=== PATIENT | male | born 1985 | race Caucasian/White ===

== ENCOUNTER 2020-06-02 10:05 | Emergency (ER) | payer OTHER, SELFPAY ==
--- NOTE | 2020-06-02 10:11 | ED_ITS ---
HPI - Nausea/Vomiting/Diarrhea General Chief complaint: Nausea/Vomiting/Diarrhea Stated complaint: DEHYDRATION,VOMITING Time Seen by Provider: 06/02/20 10:11 Source: patient Mode of arrival: ambulatory Limitations: no limitations History of Present Illness MD elicited complaint: nausea, vomiting and diarrhea Onset (ago): day(s) (2) Description of vomiting: food contents and watery Associated nausea: Yes Associated abdominal pain: No Severity: moderate Exacerbating factors: none Relieving factors: none Context: possible food poisoning Associated symptoms: denies other symptoms Treatment prior to arrival: fluids Related Data Previous Rx's Medication Instructions Recorded ondansetron 4 mg PO Q8H PRN #20 tab 06/02/20 Allergies Allergy/AdvReac Type Severity Reaction Status Date / Time codeine [CODEINE] Allergy Unknown HIVES Unverified 03/11/20 15:33 Review of Systems Review of Systems: Constitutional : No Weight loss, No Fever, No Chills ENT/Mouth : No sore throat, No Rhinorrhea Eyes: No Swelling, No Redness Cardiovascular : No Chest Pain, No SOB, NoEdema Respiratory : No Cough, No Sputum, No Wheezing Gastrointestinal : Positive Nausea, Positive Vomiting, positive Diarrhea, no abdominal Pain, No Hematochezia, No Melena Genitourinary : No Dysuria, No Urinary Frequency, No Hematuria, No Urgency Musculoskeletal : No joint pain, No Myalgias, No Joint Swelling Skin : No Skin Lesions, No rash Neuro : No Weakness, No Numbness, No Dizziness, No Headache All other systems reviewed and are negative. Gastrointestinal: Gastrointestinal: Reports nausea PMFSH Past Medical History Source: unable to obtain Medical History (Updated 06/02/20 @ 11:52 by Jenny Mcwilliams DO) No active medical problems Social History Social History (Updated 06/02/20 @ 10:30 by Jenny Mcwilliams DO) Smoking Status: Never smoker Substance Use Type: Marijuana Advance Directives: No Advance Directives Information Provided: No Physical Exam Vital Signs: Vital Signs: Last Vital Signs Temp 98.4 F 06/02/20 10:31 Pulse 96 06/02/20 10:31 Resp 18 06/02/20 10:31 BP 144/97 H 06/02/20 10:31 Pulse Ox 98 06/02/20 10:31 Body Mass Index 36.6 Appearance: Alert. Oriented X3. No acute distress. Eyes: Pupils equal, round and reactive to light. ENT: Pharynx normal. Neck: Normal inspection. Neck supple. CVS: Normal heart rate and rhythm. Pulses normal. Respiratory: No respiratory distress. Breath sounds normal. Abdomen: Soft and nontender. Skin: Skin warm and dry. Normal skin color. Normal skin turgor. Extremities: No lower extremity edema. No calf ttp Neuro: Oriented X 3. No motor deficit. No sensory deficit. Course Course Course Narrative: not toxic, able to tolerate PO other than dehydration stable for DC MDM - Nausea/Vomiting/Diarrhea MDM Narrative Medical decision making narrative: 35 yo male with 2 days of vomiting and diarrhea - no abdominal pain not toxic but states he cannot keep anything down at this time will need labs, IVF, zofran - patient suspects possible food contamination, no other sick contacts, his partner has negative COVID tests weekly Lab Data Result diagrams: 06/02/20 10:56 06/02/20 10:56 Labs: Lab Results 06/02/20 06/02/20 06/02/20 Range/Units 10:42 10:56 10:56 WBC 12.7 H (4.8-10.8) X10*3/uL RBC 6.18 H (4.60-5.80) X10*6/uL Hgb 18.3 H (14.0-18.0) g/dl Hct 51.9 (42-52) % MCV 84.0 (80-98) fL MCH 29.6 (27.0-33.0) pg MCHC 35.3 (31.0-36.0) g/dl RDW 12.8 (11.0-16.0) % Plt Count 265 (160-400) X10*3/uL MPV 10.4 (9.4-12.4) fL Immature Gran % (Auto) 0.6 H (0.0-0.4) % Neut % (Auto) 77.2 H (45-73) % Lymph % (Auto) 12.3 L (20-40) % [place] % (Auto) 9.0 (2-11) % Eos % (Auto) 0.4 (0-4) % Baso % (Auto) 0.5 (0-2) % Lymph # (Auto) 1.6 (1.2-4.9) X10*3/uL [place] # (Auto) 1.1 (0.1-1.2) X10*3/uL Eos # (Auto) 0.1 (0.0-0.4) X10*3/uL Baso # (Auto) 0.1 (0.0-0.2) X10*3/uL Abs Immat Gran (auto) 0.08 H (0.00-0.03) X10*3/uL Absolute Neuts (auto) 9.8 H (2.0-8.3) X10*3/uL Absolute Nucleated RBC 0.000 (0.0-0.012) X10*3/uL Nucleated RBC % (auto) 0.0 (0.0-0.2) /100WBC Hold Blue Top Sodium 137 (135-145) mmol/L Potassium 4.0 (3.3-5.1) mmol/l Chloride 103 (96-108) mmol/L Carbon Dioxide 19 L (22-29) mmol/L Anion Gap 19 (12-20) BUN 21 H (9-16) mg/dL Creatinine 1.13 (0.5-1.4) mg/dL Estim Creat Clear Calc 106.9 Estimated GFR > 60 Random Glucose 131 H (60-115) mg/dL Calcium 9.9 (8.4-10.2) mg/dL Magnesium 2.2 (1.6-2.6) mg/dL Total Bilirubin 0.3 (0.0-1.0) mg/dL Direct Bilirubin 0.2 (0.0-0.5) mg/dL AST 24 (5-37) U/L ALT 40 (0-40) U/L Alkaline Phosphatase 61 (39-117) U/L Total Protein 9.7 H (6.5-8.0) g/dL Albumin 5.1 H (3.5-5.0) g/dL Lipase 15 (8-78) U/L Urine Color DARK YELLOW Urine Appearance HAZY Urine pH 6.0 (5.0-8.0) Ur Specific [place] >= 1.030 H (1.005-1.025) Urine Protein 3+ H (NEG-TRACE) MG/DL Urine Glucose (UA) NEG (NEG) MG/DL Urine Ketones NEG (NEG) MG/DL Urine Blood NEG (NEG) Urine Nitrite NEG (NEG) Ur Leukocyte Esterase NEG (NEG) Urine RBC 0 (0) /HPF Urine WBC 0-2 (0-4) /HPF Ur Squamous Epith Cells TRACE /LPF Urine Bacteria NONE /LPF Urine Mucus 1+ /LPF 06/02/20 Range/Units 10:57 WBC (4.8-10.8) X10*3/uL RBC (4.60-5.80) X10*6/uL Hgb (14.0-18.0) g/dl Hct (42-52) % MCV (80-98) fL MCH (27.0-33.0) pg MCHC (31.0-36.0) g/dl RDW (11.0-16.0) % Plt Count (160-400) X10*3/uL MPV (9.4-12.4) fL Immature Gran % (Auto) (0.0-0.4) % Neut % (Auto) (45-73) % Lymph % (Auto) (20-40) % [place] % (Auto) (2-11) % Eos % (Auto) (0-4) % Baso % (Auto) (0-2) % Lymph # (Auto) (1.2-4.9) X10*3/uL [place] # (Auto) (0.1-1.2) X10*3/uL Eos # (Auto) (0.0-0.4) X10*3/uL Baso # (Auto) (0.0-0.2) X10*3/uL Abs Immat Gran (auto) (0.00-0.03) X10*3/uL Absolute Neuts (auto) (2.0-8.3) X10*3/uL Absolute Nucleated RBC (0.0-0.012) X10*3/uL Nucleated RBC % (auto) (0.0-0.2) /100WBC Hold Blue Top SEE NOTE Sodium (135-145) mmol/L Potassium (3.3-5.1) mmol/l Chloride (96-108) mmol/L Carbon Dioxide (22-29) mmol/L Anion Gap (12-20) BUN (9-16) mg/dL Creatinine (0.5-1.4) mg/dL Estim Creat Clear Calc Estimated GFR Random Glucose (60-115) mg/dL Calcium (8.4-10.2) mg/dL Magnesium (1.6-2.6) mg/dL Total Bilirubin (0.0-1.0) mg/dL Direct Bilirubin (0.0-0.5) mg/dL AST (5-37) U/L ALT (0-40) U/L Alkaline Phosphatase (39-117) U/L Total Protein (6.5-8.0) g/dL Albumin (3.5-5.0) g/dL Lipase (8-78) U/L Urine Color Urine Appearance Urine pH (5.0-8.0) Ur Specific [place] (1.005-1.025) Urine Protein (NEG-TRACE) MG/DL Urine Glucose (UA) (NEG) MG/DL Urine Ketones (NEG) MG/DL Urine Blood (NEG) Urine Nitrite (NEG) Ur Leukocyte Esterase (NEG) Urine RBC (0) /HPF Urine WBC (0-4) /HPF Ur Squamous Epith Cells /LPF Urine Bacteria /LPF Urine Mucus /LPF Discharge Plan Discharge Clinical Impression: Acute dehydration Vomiting Qualifiers: Vomiting type: unspecified Vomiting Intractability: non-intractable Nausea presence: with nausea Qualified Code(s): R11.2 - Nausea with vomiting, unspecified Diarrhea Qualifiers: Diarrhea type: unspecified type Qualified Code(s): R19.7 - Diarrhea, unspecified Patient Disposition: Home, Self-Care Instructions: Acute Nausea and Vomiting in Children (ED), Dehydration (ED), Acute Diarrhea (ED) Additional Instructions: return to ED for any worsening symptoms or concerns Prescriptions: New ondansetron 4 mg tablet,disintegrating 4 mg PO Q8H PRN (Reason: nausea and vomiting) Qty: 20 RF: 0 Referrals: Physician,None [Primary Care Provider] - 2 days (PCP if not better) Stand Alone Forms: Work/School Release
[2020-06-02 10:31] VITALS: BP 144/97; PULSE 96; RESP 18; TEMP 36.9; O2SAT 98; BMI 36.6
[2020-06-02 11:08] LABS: MANUAL DIFF FLAG NO
[2020-06-02 11:11] LABS: Basophils Absolute Auto 0.1 X10*3/uL (0.0-0.2); Basophils Percent Auto 0.5 % (0-2); Eosinophils Absolute Auto 0.1 X10*3/uL (0.0-0.4); Eosinophils Percent Auto 0.4 % (0-4); Hematocrit 51.9 % (42-52); Hemoglobin 18.3 g/dl (14.0-18.0); Imm Gran Abs Auto 0.08 X10*3/uL (0.00-0.03); Imm Gran Pct Auto 0.6 % (0.0-0.4); Lymphocytes Absolute Auto 1.6 X10*3/uL (1.2-4.9); Lymphocytes Percent Auto 12.3 % (20-40); Mean Corpuscular HGB Conc 35.3 g/dl (31.0-36.0); Mean Corpuscular Hemoglobin 29.6 pg (27.0-33.0); Mean Platelet Volume 10.4 fL (9.4-12.4); Monocytes Absolute Auto 1.1 X10*3/uL (0.1-1.2); Neutrophils Absolute Auto 9.8 X10*3/uL (2.0-8.3); Neutrophils Percent Auto 77.2 % (45-73); Platelet Count 265 X10*3/uL (160-400); Red Blood Count 6.18 X10*6/uL (4.60-5.80); Red Cell Distribution Width 12.8 % (11.0-16.0); White Blood Count 12.7 X10*3/uL (4.8-10.8)
[2020-06-02 11:12] LABS: Glucose Urine UA NEG (NEG); Leukocyte Esterase Urine NEG (NEG); Nitrite Urine NEG (NEG); Specific Gravity - Urine >= 1.030 (1.005-1.025); Urine Blood NEG (NEG); Urine Ketones NEG (NEG); Urine Protein 3+ MG/DL (NEG-TRACE)
[2020-06-02 11:13] LABS: Appearance Urine HAZY; Color Urine DARK YELLOW
[2020-06-02 11:20] LABS: Mucus Urine 1+ /LPF; RBC Urine 0 /HPF (0); Squamous Epithelial Cell Urine TRACE /LPF; WBC Urine 0-2 /HPF (0-4)
[2020-06-02] MEDS: ondansetron HCL 4 MG/2 ML VIAL IVPUSH (11:21)
[2020-06-02] MEDS: 0.9 % Sodium Chloride 1,000 ML 999 ML IVCONT ×2 (11:21→11:54)
[2020-06-02 11:44] LABS: Alanine Aminotransferase 40 U/L (0-40); Albumin Level 5.1 g/dL (3.5-5.0); Alkaline Phosphatase 61 U/L (39-117); Anion Gap 19 (12-20); Aspartate Amino Transferase 24 U/L (5-37); Bilirubin Direct 0.2 mg/dL (0.0-0.5); Bilirubin Total 0.3 mg/dL (0.0-1.0); Blood Urea Nitrogen 21 mg/dL (9-16); Calcium 9.9 mg/dL (8.4-10.2); Carbon Dioxide 19 mmol/L (22-29); Chloride 103 mmol/L (96-108); Creatinine Clr Calc Pharmacy 106.9; Estimated Glomerular Filt Rate > 60; Glucose Random 131 mg/dL (60-115); Lipase 15 U/L (8-78); Magnesium 2.2 mg/dL (1.6-2.6); Sodium 137 mmol/L (135-145); Total Protein 9.7 g/dL (6.5-8.0)
== END 2020-06-02 12:29 | disposition home or self-care (01) ==
PROVIDERS: Emergency Provider Emergency Medicine
DX: E86.0 Dehydration (principal); R11.2 Nausea with vomiting, unspecified; R19.7 Diarrhea, unspecified
CPT/HCPCS: 36415; 80048; 80076; 81001; 83690; 83735; 85025; 96361; 96374; 99282; 99284; J2405

== ENCOUNTER 2020-09-01 21:11 | Emergency (ER) | payer OTHER, SELFPAY ==
[2020-09-01 22:28] VITALS: BP 142/80; PULSE 70; RESP 16; TEMP 36.5; O2SAT 93; BMI 36.8
--- NOTE | 2020-09-01 23:20 | ED_ITS ---
HPI - Abdominal Pain General Chief Complaint: Abdominal Pain Stated Complaint: Abdominal pain Time Seen by Provider: 09/01/20 23:19 Source: patient Mode of arrival: ambulatory History of Present Illness MD elicited complaint: abdominal pain Onset (ago): day(s) (today) Pain Consistency: now resolved Location: epigastric Severity: mild Pain scale (0-10): 0 Quality: sharp Radiation: none Exacerbating factors: vomiting Relieving factors: rest Context: possible food poisoning Associated symptoms: denies other symptoms Related Data Previous Rx's Medication Instructions Recorded ondansetron 4 mg PO Q8H PRN #20 tab 06/02/20 omeprazole 40 mg PO DAILY 30 Days #30 cap 09/02/20 Allergies Allergy/AdvReac Type Severity Reaction Status Date / Time codeine [CODEINE] Allergy Unknown HIVES Verified 09/01/20 22:28 Review of Systems Review of Systems Pertinent positives and negatives as stated in HPI 10 point review systems is otherwise negative. Physical Exam Vital Signs: Vital Signs: Last Vital Signs Temp 97.7 F 09/01/20 22:28 Pulse 70 09/01/20 22:28 Resp 16 09/01/20 22:28 BP 142/80 H 09/01/20 22:28 Pulse Ox 93 09/01/20 22:28 Body Mass Index 36.8 VITAL SIGNS: Reviewed. GENERAL: Well developed, well nourished, in no acute distress. HEAD: Normocephalic/atraumatic, EYES: PERRLA, EOMI EARS: Ext canals without abnormality NOSE: Nares patent bilateral OROPHARYNX: no oral lesions noted, posterior pharynx clear, moist mucosa NECK: Supple, no adenopathy LUNGS: Normal breath sounds. No adventitious sounds or accessory muscle use. SpO2<93> CARDIOVASCULAR: Regular rate and rhythm without noted murmurs ABDOMEN: Soft, non-tender, non-distended with bowel sounds. NEUROLOGIC: Alert and oriented x 4. Course Course Course Narrative: This is a 35-year-old male with history and clinical presentation consistent with mild dehydration after suspected gastritis which has since resolved as patient states he has been able to tolerate water as well as cassia alethea and crackers throughout the day without any further episodes. There is no evidence in the history of hematemesis, melena, or hematochezia. Patient states he is otherwise feeling well and his symptoms have otherwise resolved. He will be provided with a GI cocktail and p.o. challenge. On re-evaluation patient has tolerated p.o. and feels improvement in symptoms after the GI cocktail. He was encouraged to follow up with his primary care provider in the next 2-3 days. Discharge Plan Discharge Clinical Impression: Gastritis Qualifiers: Gastritis type: unspecified gastritis Chronicity: unspecified Gastritis bleeding: without bleeding Qualified Code(s): K29.70 - Gastritis, unspecified, without bleeding Patient Disposition: Home, Self-Care Instructions: Gastritis (ED), Diet for Stomach Ulcers and Gastritis (ED) Additional Instructions: Please follow-up with your primary care provider the next 2-3 days for re- evaluation. Do not hesitate to return to the emergency department should you develop any acute worsening of your symptoms. Prescriptions: New omeprazole 40 mg capsule,delayed release(DR/EC) 40 mg PO DAILY 30 Days Qty: 30 RF: 0 No Action ondansetron 4 mg tablet,disintegrating 4 mg PO Q8H PRN (Reason: nausea and vomiting) Qty: 20 RF: 0 Referrals: Physician,None [Primary Care Provider] - 2 days Stand Alone Forms: Work/School Release [facility] Past Medical History Source: nursing notes reviewed Medical History No active medical problems Social History Social History Alcohol intake: never Smoking Status: Never smoker Use of substances other than those prescribed or required for medical reasons: Yes Substance Use Type: Marijuana Substance Use Frequency: Daily Advance Directives: No Advance Directives Information Provided: No
[2020-09-01] MEDS: Magnesium Hydrox/Alum Hydrox 30 ML ORAL.SUSP PO (23:52)
[2020-09-01] MEDS: Lidocaine HCl Viscous 2 % 15 ML SOLUTION 10 ML MUCOUS MEM (23:52)
== END 2020-09-02 00:54 | disposition home or self-care (01) ==
PROVIDERS: Emergency Provider Student in an Organized Health Care Education/Training Program
DX: K29.70 Gastritis, unspecified, without bleeding (principal); F12.90 Cannabis use, unspecified, uncomplicated
CPT/HCPCS: 99283; 99284

== ENCOUNTER 2020-12-06 20:45 | Emergency (ER) | payer OTHER, SELFPAY ==
[2020-12-06 21:32] VITALS: BP 146/86; PULSE 97; RESP 12; TEMP 36.9; O2SAT 97; BMI 31.9
[2020-12-06 22:27] LABS: COVID-19 Test Negative (Negative); IDNOW Serial# 9DD0AD1C
--- NOTE | 2020-12-06 22:39 | ED.URI ---
HPI - URI/Sore Throat General Chief Complaint: Upper Respiratory Symptoms Stated Complaint: COUGH, CONGESTION Time Seen by Provider: 12/06/20 22:36 History of Present Illness HPI Narrative: 35 years old complaining of coughing upper respiratory symptoms. Patient did not receive his coronavirus vaccine. Positive generalized malaise. Positive congestion. Coughing productive of clear sputum. No sick contacts at home. Patient nonsmoker. Related Data Previous Rx's Medication Instructions Recorded ondansetron 4 mg PO Q8H PRN #20 tab 06/02/20 omeprazole 40 mg PO DAILY 30 Days #30 cap 09/02/20 azithromycin See Rx Instructions .ROUTE 12/06/20 .COMPLEX #6 tab ibuprofen 400 mg PO Q6H PRN #20 tab 12/06/20 Allergies Allergy/AdvReac Type Severity Reaction Status Date / Time codeine [CODEINE] Allergy Unknown HIVES Verified 09/01/20 22:28 Review of Systems Review of Systems: Constitutional: No Weight loss, No Fever, No Chills, No Night Sweats, No Fatigue, No Malaise ENT/Mouth: No Hearing loss, No Ear Pain, No Nasal Congestion, No Sinus Pain, No Hoarseness, No sore throat, No Rhinorrhea, No Swallowing Difficulty Eyes: No Eye Pain, No Swelling, No Redness, No Foreign Body, No Discharge, No Vision Changes Cardiovascular: No Chest Pain, No SOB, No Dyspnea on Exertion, No Orthopnea, No Edema, No Palpitations Respiratory: Positive Cough, No Sputum, No Wheezing, No Smoke Exposure, No Dyspnea Gastrointestinal: No Nausea, No Vomiting, No Diarrhea, No Constipation, No abdominal Pain, No Hematochezia, No Melena Genitourinary: no irregular bleeding, No Dysuria, No Urinary Frequency, No Hematuria, No Urinary Incontinence, No Urgency, No Flank Pain, No Urinary Flow Changes, No Hesitancy Musculoskeletal: No joint pain, No Myalgias, No Joint Swelling Skin: No Skin Lesions, No rash Neuro: No Weakness, No Numbness, No Paresthesias, No Loss of Consciousness, No Dizziness, No Headache Psych: No Anxiety/Panic, No Depression, No SI/HI/AH/VH, No Social Issues, Heme/Lymph: No Bruising, No Bleeding,No Lymphadenopathy Endocrine: No Polyuria, No Polydipsia, No Temperature Intolerance [facility] Past Medical History Attestation statement: The following information was validated with the patient. Medical History No active medical problems Social History Social History Alcohol intake: never Substance Use Type: Marijuana Advance Directives: No Advance Directives Information Provided: Yes Physical Exam Vital Signs: Vital Signs: Last Vital Signs Temp 98.4 F 12/06/20 21:32 Pulse 97 12/06/20 21:32 Resp 12 12/06/20 21:32 BP 146/86 H 12/06/20 21:32 Pulse Ox 97 12/06/20 21:32 Body Mass Index 31.9 Appearance: Alert. Oriented X3. No acute distress. Eyes: Pupils equal, round and reactive to light. ENT: Pharynx normal. Neck: Normal inspection. Neck supple. No lymph nodes noted. No crepitus CVS: Normal heart rate and rhythm. Pulses normal. Normal S1 and S2 Respiratory: No respiratory distress. Breath sounds normal. No Wheezing. No rales Abdomen: Soft and nontender. No rigidity. No distention. good BS x4 Skin: Skin warm and dry. Normal skin color. Normal skin turgor. Extremities: No lower extremity edema. Neurovascular intact to all extremities. No Lacerations. No Rash Neuro: Oriented X 3. No motor deficit. No sensory deficit. Moving all extermities. No slurred speech MDM - URI/Sore Throat MDM Narrative Medical decision making narrative: Well-appearing not acute distress. O2 sats normal. Patient coronavirus test was negative. Will start patient on a Z-Timothy. Home quarantine suggested. Close follow-up on an outpatient basis. In stable condition. Lab Data Labs: Lab Results 12/06/20 Range/Units 21:49 COVID-19 ([facility]) Negative (Negative) COVID-19 Clin Com See Note Discharge Plan Discharge Prescriptions: New ibuprofen 400 mg tablet 400 mg PO Q6H PRN (Reason: pain) Qty: 20 RF: 0 azithromycin 250 mg tablet See Rx Instructions .ROUTE .COMPLEX Qty: 6 RF: 0 No Action ondansetron 4 mg tablet,disintegrating 4 mg PO Q8H PRN (Reason: nausea and vomiting) Qty: 20 RF: 0 omeprazole 40 mg capsule,delayed release(DR/EC) 40 mg PO DAILY 30 Days Qty: 30 RF: 0
[2020-12-06] MEDS: Ibuprofen 400 MG TABLET PO (23:17)
== END 2020-12-06 23:29 | disposition home or self-care (01) ==
PROVIDERS: Emergency Provider Emergency Medicine Emergency Medical Services; PCP Internal Medicine
DX: J06.9 Acute upper respiratory infection, unspecified (principal); Z20.822 Contact with and (suspected) exposure to COVID-19; R05 Cough
CPT/HCPCS: 36415; 87635; 99283; 99284

== ENCOUNTER 2021-01-23 05:11 | Emergency (ER) | payer OTHER, SELFPAY ==
[2021-01-23 05:15] VITALS: BP 141/88; PULSE 64; RESP 16; TEMP 36.8; O2SAT 96; BMI 34.9
--- NOTE | 2021-01-23 05:26 | ED.DENTAL ---
HPI - Dental/Oral General Chief complaint: Dental/Oral Stated complaint: toothache Time Seen by Provider: 01/23/21 05:13 Source: patient Mode of arrival: ambulatory Limitations: no limitations History of Present Illness HPI Narrative: Patient comes emergency room complaining of a dental abscess in the right maxillary side. Patient states that he cracked a tooth several months ago. The pain has been gradually been getting worse, more noticeable over the last 2-3 days. Patient has an appointment with his dentist this coming week. Patient denies fever chills. Related Data Previous Rx's Medication Instructions Recorded ondansetron 4 mg disintegrating 4 mg PO Q8H PRN #20 tab 06/02/20 tablet omeprazole 40 mg capsule,delayed 40 mg PO DAILY 30 Days #30 cap 09/02/20 release azithromycin 250 mg tablet See Rx Instructions .ROUTE 12/06/20 .COMPLEX #6 tab ibuprofen 400 mg tablet 400 mg PO Q6H PRN #20 tab 12/06/20 ketorolac 10 mg tablet 10 mg PO TID PRN 5 Days #10 tab 01/23/21 penicillin V potassium 500 mg 500 mg PO TID 10 Days #30 tab 01/23/21 tablet Allergies Allergy/AdvReac Type Severity Reaction Status Date / Time codeine [CODEINE] Allergy Unknown HIVES Verified 01/23/21 05:14 Review of Systems Review of Systems: Constitutional : No Weight loss, No Fever, No Chills, No Night Sweats, No Fatigue, No Malaise ENT/Mouth : No Hearing loss, No Ear Pain, No Nasal Congestion, No Sinus Pain, No Hoarseness, No sore throat, No Rhinorrhea, No Swallowing Difficulty, complaining of dental pain in the right maxillary aspect Eyes: No Eye Pain, No Swelling, No Redness, No Foreign Body, No Discharge, No Vision Changes Cardiovascular : No Chest Pain, No SOB, No Dyspnea on Exertion, No Orthopnea, No Edema, No Palpitations Respiratory : No Cough, No Sputum, No Wheezing, No Smoke Exposure, No Dyspnea Gastrointestinal : No Nausea, No Vomiting, No Diarrhea, No Constipation, No abdominal Pain, No Hematochezia, No Melena Genitourinary : no irregular bleeding, No Dysuria, No Urinary Frequency, No Hematuria, No Urinary Incontinence, No Urgency, No Flank Pain, No Urinary Flow Changes, No Hesitancy Musculoskeletal : No joint pain, No Myalgias, No Joint Swelling Skin : No Skin Lesions, No rash Neuro : No Weakness, No Numbness, No Paresthesias, No Loss of Consciousness, No Dizziness, No Headache Psych : No Anxiety/Panic, No Depression, No SI/HI/AH/VH, No Social Issues, Heme/Lymph: No Bruising, No Bleeding,No Lymphadenopathy Endocrine : No Polyuria, No Polydipsia, No Temperature Intolerance [facility] Past Medical History Medical History No active medical problems Social History Social History Alcohol intake: never Substance Use Type: Marijuana Physical Exam Vital Signs: Vital Signs: Last Vital Signs Temp 98.3 F 01/23/21 05:15 Pulse 64 01/23/21 05:15 Resp 16 01/23/21 05:15 BP 141/88 H 01/23/21 05:15 Pulse Ox 96 01/23/21 05:15 Body Mass Index 34.9 Const: Other: Appearance: Alert. Oriented X3. No acute distress. Eyes: Pupils equal, round and reactive to light. ENT: Pharynx normal. Multiple chipped teeth in the right side maxillary aspect. No abscess visualized Neck: Normal inspection. Neck supple. No lymph nodes noted. No crepitus CVS: Normal heart rate and rhythm. Pulses normal. Normal S1 and S2 Respiratory: No respiratory distress. Breath sounds normal. No Wheezing. No rales Abdomen: Soft and nontender. No rigidity. No distention. good BS x4 Skin: Skin warm and dry. Normal skin color. Normal skin turgor. Extremities: No lower extremity edema. No lower extremity edema. No Lacerations. No Rash Neuro: Oriented X 3. No motor deficit. No sensory deficit. Moving all extermities. No slurred speech. Course Course Course Narrative: Patient has an appointment coming up with his dentist this week. Patient was given the 1st dose of penicillin and IM ketorolac in the emergency room Discharge Plan Discharge Clinical Impression: Toothache Patient Disposition: Home, Self-Care Instructions: Toothache (ED) Additional Instructions: Please follow-up with your primary care physician tomorrow. If you have any worsening or new symptoms, please return to the emergency room or call 911 Prescriptions: New penicillin V potassium 500 mg tablet 500 mg PO TID 10 Days Qty: 30 RF: 0 ketorolac 10 mg tablet 10 mg PO TID PRN (Reason: pain) 5 Days Qty: 10 RF: 0 No Action ibuprofen 400 mg tablet 400 mg PO Q6H PRN (Reason: pain) Qty: 20 RF: 0 azithromycin 250 mg tablet See Rx Instructions .ROUTE .COMPLEX Qty: 6 RF: 0 ondansetron 4 mg tablet,disintegrating 4 mg PO Q8H PRN (Reason: nausea and vomiting) Qty: 20 RF: 0 omeprazole 40 mg capsule,delayed release(DR/EC) 40 mg PO DAILY 30 Days Qty: 30 RF: 0
[2021-01-23] MEDS: Penicillin V Potassium 250 MG TABLET 500 MG PO (05:43)
[2021-01-23] MEDS: Ketorolac Tromethamine 60 MG/2 ML VIAL IM (05:44)
--- NOTE | 2021-01-23 05:48 | PC.NURSE ---
Medicated per MAR.
== END 2021-01-23 05:54 | disposition home or self-care (01) ==
LOC: HO.ED 05:54
PROVIDERS: Emergency Provider Emergency Medicine
DX: K08.89 Other specified disorders of teeth and supporting structures (principal); Z79.899 Other long term (current) drug therapy; F12.90 Cannabis use, unspecified, uncomplicated
CPT/HCPCS: 96372; 99283; J1885

== ENCOUNTER 2021-03-01 12:56 | Emergency (ER) | payer OTHER, SELFPAY ==
--- NOTE | ~2021-03-01 | CT_ITS ---
EXAMINATION: CT SOFT TISSUE NECK WITH CONTRAST CLINICAL INFORMATION: Rule out left-sided LAMINATION INSPECTOR or retropharyngeal abscess. COMPARISON: None TECHNIQUE: Following the administration of 100 mL of Omnipaque 300 intravenous contrast, helical imaging was performed in the axial plane with generation of coronal and sagittal reformatted images. This CT examination was performed using dose optimization techniques as appropriate, variously including the following: *Automated exposure control *Adjustment of mA and/or kV according to patient size (this includes techniques or standardized protocols for targeted exams where dose is matched to indication/reason for exam; i.e. extremities or head) *Use of iterative reconstruction technique DLP: 922 mGy-cm FINDINGS: The left palatine tonsil is abnormally enlarged and demonstrates heterogeneous attenuation but no well-defined rim-enhancing lesion is seen. The right palatine tonsil is also enlarged with heterogeneous attenuation. The palatine tonsils meet in the midline. Mild edema seen along the left lateral pharyngeal wall. There is no inflammation deep to the constrictor ring. No retropharyngeal collection is seen. Mildly enlarged left more than right level 2 lymph nodes are seen which are likely reactive measuring up to 1.6 cm on the left. A mildly enlarged left level 2/3 lymph node measures 1.5 cm. Additional nonenlarged lymph nodes are seen along the bilateral cervical chains. The parotid and submandibular glands appear normal. The thyroid gland appears normal. The upper lungs are clear. Mild amount of soft tissue seen within the anterior mediastinum likely representing residual thymic tissue. The major neck vessels demonstrate normal enhancement. The imaged portions of the intracranial contents appear normal. There is mild paranasal sinus mucosal thickening without fluid levels. The cervical spine is intact without significant abnormality. CT/CT soft tissue neck w con IMPRESSION: Asymmetric enlargement of the left more than right palatine tonsils compatible with phlegmonous changes. No drainable peritonsillar abscess is seen. Mild edema seen along the left lateral pharyngeal wall. Reactive adenopathy is seen in the left more than right upper cervical chains.
[2021-03-01 14:26] VITALS: BP 142/79; PULSE 92; RESP 18; TEMP 37.2; O2SAT 100
[2021-03-01 14:54] LABS: IDNOW Serial# 08D9AD1C; Strep A Nucleic Acid Negative (Negative)
[2021-03-01 15:10] LABS: COVID-19 Test Negative (Negative); IDNOW Serial# 08D9AD1C
[2021-03-01 17:25] LABS: Basophils Absolute Auto 0.1 X10*3/uL (0.0-0.2); Basophils Percent Auto 0.5 % (0-2); Eosinophils Absolute Auto 0.3 X10*3/uL (0.0-0.4); Eosinophils Percent Auto 1.4 % (0-4); Hematocrit 45.4 % (42-52); Hemoglobin 15.1 g/dl (14.0-18.0); Imm Gran Abs Auto 0.09 X10*3/uL (0.00-0.03); Imm Gran Pct Auto 0.5 % (0.0-0.4); Lymphocytes Absolute Auto 3.1 X10*3/uL (1.2-4.9); Lymphocytes Percent Auto 17.3 % (20-40); MANUAL DIFF FLAG NO; Mean Corpuscular HGB Conc 33.3 g/dl (31.0-36.0); Mean Corpuscular Hemoglobin 28.5 pg (27.0-33.0); Mean Corpuscular Volume 85.7 fL (80-98); Mean Platelet Volume 10.9 fL (9.4-12.4); Monocytes Absolute Auto 1.3 X10*3/uL (0.1-1.2); Monocytes Percent Auto 7.4 % (2-11); Neutrophils Absolute Auto 12.9 X10*3/uL (2.0-8.3); Neutrophils Percent Auto 72.9 % (45-73); Platelet Count 258 X10*3/uL (160-400); Red Cell Distribution Width 13.3 % (11.0-16.0); White Blood Count 17.7 X10*3/uL (4.8-10.8)
[2021-03-01] MEDS: Ketorolac Tromethamine 15 MG/ML VIAL IVPUSH (17:26)
[2021-03-01] MEDS: methylPREDNISolone Sod Succ 125 MG/2 ML VIAL IVPUSH (17:30)
[2021-03-01] MEDS: Clindamycin Phosphate/D5W 600 MG/50 ML PIGGYBACK 100 MG IV (17:36)
[2021-03-01] MEDS: 0.9 % Sodium Chloride 1,000 ML 999 ML IVCONT (17:39)
[2021-03-01 17:40] LABS: Anion Gap 16 (12-20); Blood Urea Nitrogen 10 mg/dL (9-16); Calcium 10.1 mg/dL (8.4-10.2); Carbon Dioxide 25 mmol/L (22-29); Chloride 103 mmol/L (96-108); Creatinine Clr Calc Pharmacy 147.7; Estimated Glomerular Filt Rate > 60; Glucose Random 105 mg/dL (60-115); Sodium 140 mmol/L (135-145)
[2021-03-01] MEDS: iohexoL 350 MG/ML 100 ML INFUS..BTL IV (18:03)
--- NOTE | 2021-03-01 18:19 | ED_ITS ---
HPI - General Adult General Chief complaint: General Medical Stated complaint: sorethroat Time Seen by Provider: 03/01/21 15:20 Source: patient Mode of arrival: ambulatory History of Present Illness HPI narrative: 36-year-old male with no significant past medical history presenting to the ED complaining of left-sided sore throat x2 days with associated muffled voice. Reports pain/difficulty swallowing. Admits had sore throat last week but resolved after gargling salt water. Denies fever, chills, SOB, inability to swallow, ear pain, cough, recent travel, sick contacts/COVID- 19 exposure Onset (ago): day(s) Related Data Previous Rx's Medication Instructions Recorded ondansetron 4 mg disintegrating 4 mg PO Q8H PRN #20 tab 06/02/20 tablet omeprazole 40 mg capsule,delayed 40 mg PO DAILY 30 Days #30 cap 09/02/20 release azithromycin 250 mg tablet See Rx Instructions .ROUTE 12/06/20 .COMPLEX #6 tab ibuprofen 400 mg tablet 400 mg PO Q6H PRN #20 tab 12/06/20 ketorolac 10 mg tablet 10 mg PO TID PRN 5 Days #10 tab 01/23/21 penicillin V potassium 500 mg 500 mg PO TID 10 Days #30 tab 01/23/21 tablet acetaminophen 500 mg tablet 500 mg PO Q6H PRN #20 tab 03/01/21 (Tylenol Extra Strength) clindamycin HCl 300 mg capsule 450 mg PO Q8H 7 Days #32 cap 03/01/21 ibuprofen 800 mg tablet 800 mg PO Q8H PRN #14 tab 03/01/21 prednisone 20 mg tablet 60 mg PO DAILY 5 Days #15 tab 03/01/21 Allergies Allergy/AdvReac Type Severity Reaction Status Date / Time codeine [CODEINE] Allergy Unknown HIVES Verified 01/23/21 05:14 Review of Systems Review of Systems: Constitutional: No Fever, No Chills ENT/Mouth: No Ear Pain, No Nasal Congestion, No Sinus Pain, + Hoarseness, + sore throat, No Rhinorrhea, + Swallowing Difficulty Cardiovascular: No Chest Pain, No SOB Respiratory: No Cough, No Sputum, No Wheezing Gastrointestinal: No Nausea, No Vomiting, No Abdominal pain Musculoskeletal: No joint pain, No Myalgias, No Joint Swelling Skin: No Skin Lesions, No rash Neuro: No Weakness Yes all other systems are reviewed and are negative [facility] Past Medical History Attestation statement: The following information was validated with the patient. Medical History No active medical problems Social History Social History Alcohol intake: never Substance Use Type: Marijuana Advance Directives: No Physical Exam Vital Signs: Vital Signs: Last Vital Signs Temp 99 F 03/01/21 14:26 Pulse 92 03/01/21 14:26 Resp 18 03/01/21 14:26 BP 142/79 H 03/01/21 14:26 Pulse Ox 100 03/01/21 14:26 Body Mass Index 0.3 Const: General: cooperative, comfortable and no acute distress Orientation/consciousness: patient oriented x3 Limitations: no limitations HENMT: Other: Mild posterior oropharyngeal erythema. Tonsils do not appear overtly swollen. No appreciable exudates. No discrete .NET DEVELOPER. +Muffled voice, talking in complete sentences. No respiratory distress Head: Yes normal to inspection Ears: hearing grossly normal bilaterally General nose exam: Normal external nose present Face and sinus: Yes normal facial exam Mouth: Normal oral and palatal mucosa present, tongue normal, no drooling and muffled voice Throat: No abnormal tonsil and Yes uvula laterally displaced (to the right) Eyes: General: appearance normal, both eyes and all related structures EOM: EOMs intact bilaterally Neck: Neck: Yes normal visual inspection, Yes no meningeal signs, Yes lymphadenopathy (+ left-sided submandibular lymphadenopathy) and No tracheal deviation Resp: Effort & Inspection: normal respiratory effort, no nasal flaring, no stridor and not tachypneic Auscultation: clear to auscultation bilaterally Cardio: Rate: regular rate Heart sounds: S1 normal heart sound present and S2 normal heart sound present GI: Inspection: Yes normal to inspection Skin: Rashes: no rashes Wounds: no wounds Neuro: General: patient oriented x3 and no meningeal signs Gait exam (Neuro): Normal gait present Extrem: General: Yes normal to inspection Course Course Course Narrative: -COVID-19 negative. Rapid strep negative. -183--noted leukocytosis of 17.7 Labs otherwise unremarkable >> will obtain lactic/blood cultures. Low concern for severe sepsis. 1856--CT soft tissue neck w con IMPRESSION:? Asymmetric enlargement of the left more than right palatine tonsils compatible with phlegmonous changes. No drainable peritonsillar abscess is seen. Mild edema seen along the left lateral pharyngeal wall. Reactive adenopathy is seen in the left more than right upper cervical chains. >> results discussed with Dr. Stock, plan to discharge patient home on p.o. Clindamycin, and 60mg of Prednisone daily x5 days. Results discussed with patient including worrisome signs and symptoms including increased or worsening swelling, fever, SOB, throat scratching/difficulty swal lowing, etc. to return to the ED immediately -1800--ED care transfer to [facility] pending lactic and anticipated DC home Medical Decision Making MDM Narrative Medical decision making narrative: 36-year-old male with no significant past medical history presenting to the ED complaining of left-sided sore throat x2 days with associated muffled voice. Reports pain/difficulty swallowing. On exam VSS, NAD, nontoxic appearing, physical exam as above. No respiratory distress. No discrete .NET DEVELOPER, however there is concern for .NET DEVELOPER with muffled voice/ deviated uvula vs retropharyngeal abscess Case discussed with Dr. Rod who also evaluated patient. Plan: Labs, IV Solu-Medrol, IV Clindamycin, soft tissue neck CT Low concern for severe sepsis Lab Data Result diagrams: 03/01/21 17:13 03/01/21 17:13 Labs: Lab Results 03/01/21 03/01/21 03/01/21 Range/Units 14:32 14:32 17:13 WBC 17.7 H (4.8-10.8) X10*3/uL RBC 5.30 (4.60-5.80) X10*6/uL Hgb 15.1 (14.0-18.0) g/dl Hct 45.4 (42-52) % MCV 85.7 (80-98) fL MCH 28.5 (27.0-33.0) pg MCHC 33.3 (31.0-36.0) g/dl RDW 13.3 (11.0-16.0) % Plt Count 258 (160-400) X10*3/uL MPV 10.9 (9.4-12.4) fL Immature Gran % (Auto) 0.5 H (0.0-0.4) % Neut % (Auto) 72.9 (45-73) % Lymph % (Auto) 17.3 L (20-40) % [place] % (Auto) 7.4 (2-11) % Eos % (Auto) 1.4 (0-4) % Baso % (Auto) 0.5 (0-2) % Lymph # (Auto) 3.1 (1.2-4.9) X10*3/uL [place] # (Auto) 1.3 H (0.1-1.2) X10*3/uL Eos # (Auto) 0.3 (0.0-0.4) X10*3/uL Baso # (Auto) 0.1 (0.0-0.2) X10*3/uL Abs Immat Gran (auto) 0.09 H (0.00-0.03) X10*3/uL Absolute Neuts (auto) 12.9 H (2.0-8.3) X10*3/uL Absolute Nucleated RBC 0.000 (0.0-0.012) X10*3/uL Nucleated RBC % (auto) 0.0 (0.0-0.2) /100WBC Sodium (135-145) mmol/L Potassium (3.3-5.1) mmol/L Chloride (96-108) mmol/L Carbon Dioxide (22-29) mmol/L Anion Gap (12-20) BUN (9-16) mg/dL Creatinine (0.5-1.4) mg/dL Estim Creat Clear Calc Estimated GFR Random Glucose (60-115) mg/dL Calcium (8.4-10.2) mg/dL COVID-19 (ZEINA) Negative (Negative) COVID-19 Clin Com See Note S. pyogenes GrpA EDGAR Negative (Negative) 03/01/21 Range/Units 17:13 WBC (4.8-10.8) X10*3/uL RBC (4.60-5.80) X10*6/uL Hgb (14.0-18.0) g/dl Hct (42-52) % MCV (80-98) fL MCH (27.0-33.0) pg MCHC (31.0-36.0) g/dl RDW (11.0-16.0) % Plt Count (160-400) X10*3/uL MPV (9.4-12.4) fL Immature Gran % (Auto) (0.0-0.4) % Neut % (Auto) (45-73) % Lymph % (Auto) (20-40) % [place] % (Auto) (2-11) % Eos % (Auto) (0-4) % Baso % (Auto) (0-2) % Lymph # (Auto) (1.2-4.9) X10*3/uL [place] # (Auto) (0.1-1.2) X10*3/uL Eos # (Auto) (0.0-0.4) X10*3/uL Baso # (Auto) (0.0-0.2) X10*3/uL Abs Immat Gran (auto) (0.00-0.03) X10*3/uL Absolute Neuts (auto) (2.0-8.3) X10*3/uL Absolute Nucleated RBC (0.0-0.012) X10*3/uL Nucleated RBC % (auto) (0.0-0.2) /100WBC Sodium 140 (135-145) mmol/L Potassium 4.0 (3.3-5.1) mmol/L Chloride 103 (96-108) mmol/L Carbon Dioxide 25 (22-29) mmol/L Anion Gap 16 (12-20) BUN 10 D (9-16) mg/dL Creatinine 0.94 (0.5-1.4) mg/dL Estim Creat Clear Calc 147.7 Estimated GFR > 60 Random Glucose 105 (60-115) mg/dL Calcium 10.1 (8.4-10.2) mg/dL COVID-19 (ZEINA) (Negative) COVID-19 Clin Com S. pyogenes GrpA EDGAR (Negative) Discharge Plan Discharge Clinical Impression: Enlargement of left palatine tonsil Instructions: Tonsillitis (ED) Additional Instructions: You have swelling/infection your tonsils, left greater than right, with edema going down your pharyngeal wall. There is no drainable abscess/fluid collection You have a very high white blood cell count/marker of infection, is very important for you to take antibiotics as prescribed, clindamycin Prednisone as a steroid which will help with inflammation Ibuprofen and Tylenol will help with pain/inflammation If you have any increased swelling, scratchy throat, difficulty swallowing, difficulty breathing, worsening oral swelling return to the ED immediately please follow-up with ear nose throat specialist Prescriptions: New clindamycin HCl 300 mg capsule 450 mg PO Q8H 7 Days Qty: 32 RF: 0 prednisone 20 mg tablet 60 mg PO DAILY 5 Days Qty: 15 RF: 0 ibuprofen 800 mg tablet 800 mg PO Q8H PRN (Reason: pain) Qty: 14 RF: 0 acetaminophen [Tylenol Extra Strength] 500 mg tablet 500 mg PO Q6H PRN (Reason: pain or fever) Qty: 20 RF: 0 No Action ibuprofen 400 mg tablet 400 mg PO Q6H PRN (Reason: pain) Qty: 20 RF: 0 azithromycin 250 mg tablet See Rx Instructions .ROUTE .COMPLEX Qty: 6 RF: 0 penicillin V potassium 500 mg tablet 500 mg PO TID 10 Days Qty: 30 RF: 0 ketorolac 10 mg tablet 10 mg PO TID PRN (Reason: pain) 5 Days Qty: 10 RF: 0 ondansetron 4 mg tablet,disintegrating 4 mg PO Q8H PRN (Reason: nausea and vomiting) Qty: 20 RF: 0 omeprazole 40 mg capsule,delayed release(DR/EC) 40 mg PO DAILY 30 Days Qty: 30 RF: 0 Referrals: Sundeep Amado [Physician] - 3 days
[2021-03-01 19:09] VITALS: BP 151/91; PULSE 81; RESP 18; O2SAT 98
[2021-03-01 19:27] LABS: Lactic Acid 1.3 mmol/L (0.5-2.0)
== END 2021-03-01 20:33 | disposition home or self-care (01) ==
PROVIDERS: Physician Assistant; Emergency Provider Emergency Medicine
DX: J35.1 Hypertrophy of tonsils (principal); Z20.822 Contact with and (suspected) exposure to COVID-19; J02.9 Acute pharyngitis, unspecified; F12.90 Cannabis use, unspecified, uncomplicated
CPT/HCPCS: 36415; 70491; 80048; 83605; 85025; 87040; 87635; 87651; 96365; 96375; 99284; J1885; J2930; Q9967

== ENCOUNTER 2021-05-08 14:13 | Emergency (ER) | payer OTHER, SELFPAY ==
--- NOTE | ~2021-05-08 | XR_ITS ---
EXAMINATION: XR CHEST CLINICAL INFORMATION: Cough and wheezing COMPARISON: None TECHNIQUE: Frontal view of the chest was obtained. FINDINGS: No significant abnormality is noted involving the heart, lungs, mediastinum, bony thorax or soft tissues. XR/XR chest 1V IMPRESSION: Unremarkable examination.
[2021-05-08 14:25] VITALS: BP 136/78; PULSE 91; RESP 18; TEMP 36.6; O2SAT 96; BMI 35.2
[2021-05-08 14:40] LABS: Strep A Nucleic Acid Positive (Negative)
[2021-05-08] MEDS: Benzonatate 100 MG CAPSULE 200 MG PO (15:08)
[2021-05-08] MEDS: Amoxicillin/Potassium Clav 875 MG TABLET PO (15:08)
[2021-05-08 15:16] LABS: Influenza A PCR NEGATIVE (Negative); Influenza B PCR NEGATIVE (Negative); Resp Syncy Virus RNA Qual PCR NEGATIVE (Negative); SARS COV2 PCR INHOUSE NEGATIVE (Negative)
[2021-05-08] MEDS: Albuterol/Iprat 2.5/0.5MG 3 ML AMPUL.NEB INHALE (15:16)
[2021-05-08 15:17] VITALS: PULSE 91; O2SAT 96
--- NOTE | 2021-05-08 15:38 | ED.URI ---
HPI - URI/Sore Throat General Chief Complaint: Upper Respiratory Symptoms Stated Complaint: fever chest congestion Time Seen by Provider: 05/08/21 14:50 Source: patient Mode of arrival: ambulatory History of Present Illness HPI Narrative: 36-year-old male with no significant past medical history presenting to the ED complaining of rhinorrhea/congestion, nonproductive cough, sore throat, and mild SOB x a couple days. Denies fever, chills, ear pain, chest pain, recent travel, history of blood clots, LE edema MD elicited complaint: cough, sore throat, rhinorrhea and nasal congestion Related Data Previous Rx's Medication Instructions Recorded ondansetron 4 mg disintegrating 4 mg PO Q8H PRN #20 tab 06/02/20 tablet omeprazole 40 mg capsule,delayed 40 mg PO DAILY 30 Days #30 cap 09/02/20 release azithromycin 250 mg tablet See Rx Instructions .ROUTE 12/06/20 .COMPLEX #6 tab ibuprofen 400 mg tablet 400 mg PO Q6H PRN #20 tab 12/06/20 ketorolac 10 mg tablet 10 mg PO TID PRN 5 Days #10 tab 01/23/21 penicillin V potassium 500 mg 500 mg PO TID 10 Days #30 tab 01/23/21 tablet acetaminophen 500 mg tablet 500 mg PO Q6H PRN #20 tab 03/01/21 (Tylenol Extra Strength) clindamycin HCl 300 mg capsule 450 mg PO Q8H 7 Days #32 cap 03/01/21 ibuprofen 800 mg tablet 800 mg PO Q8H PRN #14 tab 03/01/21 prednisone 20 mg tablet 60 mg PO DAILY 5 Days #15 tab 03/01/21 albuterol sulfate 90 mcg/actuation 2 puff INHALATION Q4-6H PRN #6.7 g 05/08/21 aerosol inhaler amoxicillin 875 mg-potassium 1 tab PO Q12H 7 Days #14 tab 05/08/21 clavulanate 125 mg tablet (Augmentin) Allergies Allergy/AdvReac Type Severity Reaction Status Date / Time codeine [CODEINE] Allergy Unknown HIVES Verified 01/23/21 05:14 Review of Systems Review of Systems: Constitutional: No Fever, No Chills ENT/Mouth: No Ear Pain, + Nasal Congestion, No Sinus Pain, No Hoarseness, + sore throat, + Rhinorrhea, No Swallowing Difficulty Cardiovascular: No Chest Pain, + SOB Respiratory: + Cough, No Sputum, + Wheezing Gastrointestinal: No Nausea, No Vomiting,No Abdominal pain Genitourinary: No Dysuria, No Urinary Frequency Musculoskeletal: No joint pain, No Myalgias, No Joint Swelling Skin: No Skin Lesions, No rash Neuro: No Weakness, No Numbness, No Paresthesias Yes all other systems are reviewed and are negative [facility] Past Medical History Attestation statement: The following information was validated with the patient. Medical History No active medical problems Social History Social History Alcohol intake: never Substance Use Type: Marijuana Advance Directives: No Advance Directives Information Provided: Yes Physical Exam Vital Signs: Vital Signs: Last Vital Signs Temp 98 F 05/08/21 14:25 Pulse 91 05/08/21 15:17 Resp 18 05/08/21 14:25 BP 136/78 05/08/21 14:25 Pulse Ox 96 05/08/21 14:25 Body Mass Index 35.2 Const: General: cooperative, healthy appearing and no acute distress Orientation/consciousness: patient oriented x3 Limitations: no limitations HENMT: Head: Yes normal to inspection Ears: hearing grossly normal bilaterally, external ears normal, TM's normal bilaterally and mastoids normal General nose exam: Normal external nose present Face and sinus: Yes normal facial exam Mouth: Normal oral and palatal mucosa present Throat: Yes uvula midline, Yes abnormal tonsil (Mild bilateral tonsillar erythema. No swelling/exudates), No peritonsillar mass and No uvular edema Eyes: General: appearance normal, both eyes and all related structures EOM: EOMs intact bilaterally Neck: Neck: Yes normal visual inspection, Yes no lymphadenopathy and Yes no meningeal signs Resp: Effort & Inspection: normal respiratory effort Auscultation: wheezes (Slight end inspiratory/expiratory wheeze) throughout Cardio: Rate: regular rate Heart sounds: S1 normal heart sound present and S2 normal heart sound present Skin: Rashes: no rashes Wounds: no wounds Neuro: General: patient oriented x3 and no meningeal signs Gait exam (Neuro): Normal gait present Extrem: General: Yes normal to inspection Course Course Course Narrative: -rapid strep positive. Patient given 1st dose of Augmentin in the ED XR chest 1V IMPRESSION: Unremarkable examination. -COVID-19/influenza/RSV negative. 15:51--on re-evaluation patient reports symptomatic improvement after DuoNeb, lungs CTA. Worsening signs and symptoms and strict return precautions discussed, he verbalized understanding feel safe for discharge home at this time MDM - URI/Sore Throat MDM Narrative Medical decision making narrative: 36-year-old male with no significant past medical history presenting to the ED complaining of rhinorrhea/congestion, nonproductive cough, sore throat, and mild SOB x a couple days. On exam vital signs stable, NAD, physical exam as above of slight inspiratory and expiratory wheeze noted. Concern for viral syndrome/COVID-19 for rule out pneumonia. Rule out strep pharyngitis. Plan: COVID-19/influenza/RSV testing, rapid strep, CXR, DuoNeb Medical Records Attestation: I reviewed the patient's medical records. Lab Data Attestation: I reviewed the patient's lab results. Labs: Lab Results 05/08/21 05/08/21 Range/Units 14:28 14:28 Influenza Type A (PCR) NEGATIVE (Negative) Influenza Type B (PCR) NEGATIVE (Negative) RSV RNA Qual (PCR) NEGATIVE (Negative) SARS-CoV-2 RNA (RT-PCR) NEGATIVE (Negative) S. pyogenes GrpA EDGAR Positive A (Negative) Discharge Plan Discharge Clinical Impression: Upper respiratory infection Qualifiers: URI type: unspecified viral URI Qualified Code(s): J06.9 - Acute upper respiratory infection, unspecified Pharyngitis Qualifiers: Pharyngitis/tonsillitis etiology: streptococcus Qualified Code(s): J02.0 - Streptococcal pharyngitis Patient Disposition: Home, Self-Care Instructions: Upper Respiratory Infection (ED), Pharyngitis (ED) Additional Instructions: You have strep throat. Augmentin is antibiotic, take as prescribed In addition had some wheezing in her lungs however x-ray was unremarkable. You also tested negative for COVID, the flu, and RSV Use albuterol inhaler home as needed for shortness of breath/wheezing If her symptoms persist/worsen please return to the ED Prescriptions: New albuterol sulfate 90 mcg/actuation HFA aerosol inhaler 2 puff inhalation Q4-6H PRN (Reason: shortness of breath or wheezing) Qty: 6.7 RF: 0 amoxicillin-pot clavulanate [Augmentin] 875-125 mg tablet 1 tab PO Q12H 7 Days Qty: 14 RF: 0 No Action ibuprofen 400 mg tablet 400 mg PO Q6H PRN (Reason: pain) Qty: 20 RF: 0 azithromycin 250 mg tablet See Rx Instructions .ROUTE .COMPLEX Qty: 6 RF: 0 penicillin V potassium 500 mg tablet 500 mg PO TID 10 Days Qty: 30 RF: 0 ketorolac 10 mg tablet 10 mg PO TID PRN (Reason: pain) 5 Days Qty: 10 RF: 0 clindamycin HCl 300 mg capsule 450 mg PO Q8H 7 Days Qty: 32 RF: 0 prednisone 20 mg tablet 60 mg PO DAILY 5 Days Qty: 15 RF: 0 ibuprofen 800 mg tablet 800 mg PO Q8H PRN (Reason: pain) Qty: 14 RF: 0 acetaminophen [Tylenol Extra Strength] 500 mg tablet 500 mg PO Q6H PRN (Reason: pain or fever) Qty: 20 RF: 0 ondansetron 4 mg tablet,disintegrating 4 mg PO Q8H PRN (Reason: nausea and vomiting) Qty: 20 RF: 0 omeprazole 40 mg capsule,delayed release(DR/EC) 40 mg PO DAILY 30 Days Qty: 30 RF: 0 Referrals: Physician,Unknown J [Primary Care Provider] - 3 days
== END 2021-05-08 15:50 | disposition home or self-care (01) ==
PROVIDERS: Emergency Provider Emergency Medicine
DX: J02.0 Streptococcal pharyngitis (principal); J06.9 Acute upper respiratory infection, unspecified; Z20.822 Contact with and (suspected) exposure to COVID-19
CPT/HCPCS: 0241U; 36415; 71045; 87651; 94640; 99283; 99284

== ENCOUNTER 2023-07-13 16:24 | Emergency (ER) | payer MEDICAID, SELFPAY ==
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
[2023-07-13 17:18] VITALS: BP 141/95; PULSE 86; RESP 18; TEMP 36.6; O2SAT 97; BMI 28.9
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
[2023-07-13] MEDS: Lidocaine 4 % Patch ADH..PATCH 2 PATCH TRANSDERMA (19:59)
[2023-07-13 20:02] VITALS: BP 158/77; PULSE 100; RESP 18; TEMP 37.1; O2SAT 97
== END 2023-07-13 20:04 | disposition home or self-care (01) ==
PROVIDERS: Emergency Provider Emergency Medicine
DX: Z04.1 Encounter for examination and observation following transport accident (principal); M62.838 Other muscle spasm
CPT/HCPCS: 71101; 73030; 99283